=== PATIENT | male | born 1955 | race African-American/Black ===

== ENCOUNTER 2022-04-13 08:37 | Inpatient (IN) | payer MEDICARE, MEDICAID ==
[2022-04-13 10:07] LABS: ALT (SGPT) 22 U/L (8-55); AST (SGOT) 32 U/L (5-34); Albumin 1.9 g/dL (3.4-4.8); Alkaline Phosphatase 105 U/L (40-110); Anion Gap 11 mmol/L (10-20); BUN (Urea Nitrogen) 15 mg/dL (8.4-25.7); Bilirubin, Total 0.7 mg/dL (0.2-1.2); CK (CPK) 127 U/L (30-200); Calc. Creatinine Clearance 0 mL/min (70-130); Calcium 7.5 mg/dL (7.8-10.44); Carbon Dioxide 30 mmol/L (23-31); Chloride 100 mmol/L (98-107); Estimated GFR 72; Globulin 2.6 g/dL (2.4-3.5); Glucose 114 mg/dL (80-115); Potassium 3.2 mmol/L (3.5-5.1); Protein, Total 4.5 g/dL (5.8-8.1); Sodium 138 mmol/L (136-145)
[2022-04-13 10:10] LABS: #Lymphocytes 1.2 thou/uL (1.20-3.40); #Monocytes 0.7 thou/uL (0.11-0.59); #Neutrophils 9.8 thou/uL (1.40-6.50); %Eosinophils 0.3 % (0.0-10.0); %Lymphocytes 10.4 % (21.0-51.0); %Monocytes 6.1 % (0.0-10.0); %Neutrophils 83.2 % (42.0-75.0); Hemoglobin 10.7 g/dL (14.0-18.0); Mean Corpuscular HGB CONC 31.8 g/dL (32.0-36.0); Mean Corpuscular Hemoglobin 27.6 pg (27.0-31.0); Mean Corpuscular Volume 86.8 fL (78.0-98.0); Mean Platelet Volume 8.6 fL (7.4-10.4); Platelet Count 287 thou/uL (130-400); RBC Distribution Width 14.8 % (11.5-14.5); Red Blood Cell (RBC) Count 3.87 mill/uL (4.70-6.10); White Blood Cell (WBC) Count 11.7 thou/uL (4.8-10.8)
[2022-04-13] MEDS ORDERED: Fentanyl 100 MCG/2 ML VIAL ONE (10:15)
[2022-04-13 10:28] LABS: CKMB 2.3 ng/mL (0-6.6)
[2022-04-13] MEDS ORDERED: HYDROcodone/Acetaminophen 5/325 mg Tablet PO PRN ×2 (13:34)
[2022-04-13 13:43] LABS: CKMB 5.5 ng/mL (0-6.6)
[2022-04-13] MEDS ORDERED: Potassium Chloride 20 MEQ TAB PO SCH (15:00)
[2022-04-13 16:02] VITALS: BMI 34.1
[2022-04-13 16:46] LABS: CKMB 6.1 ng/mL (0-6.6)
[2022-04-13] MEDS: Benztropine 1 MG TAB PO SCH (20:28)
[2022-04-14 05:00] LABS: #Eosinphils 0.1 thou/uL (0.0-0.7); #Lymphocytes 1.5 thou/uL (1.20-3.40); #Monocytes 0.8 thou/uL (0.11-0.59); %Basophils 0.5 % (0.0-1.0); %Eosinophils 1.3 % (0.0-10.0); %Lymphocytes 20.3 % (21.0-51.0); %Monocytes 11.2 % (0.0-10.0); %Neutrophils 66.7 % (42.0-75.0); Hemoglobin 9.3 g/dL (14.0-18.0); Mean Corpuscular Hemoglobin 27.9 pg (27.0-31.0); Mean Corpuscular Volume 87.3 fL (78.0-98.0); Mean Platelet Volume 8.3 fL (7.4-10.4); Platelet Count 249 thou/uL (130-400); Red Blood Cell (RBC) Count 3.32 mill/uL (4.70-6.10); White Blood Cell (WBC) Count 7.5 thou/uL (4.8-10.8)
[2022-04-14 05:16] LABS: Anion Gap 10 mmol/L (10-20); BUN (Urea Nitrogen) 18 mg/dL (8.4-25.7); CK (CPK) 250 U/L (30-200); Calc. Creatinine Clearance 114 mL/min (70-130); Calcium 7.3 mg/dL (7.8-10.44); Carbon Dioxide 31 mmol/L (23-31); Chloride 100 mmol/L (98-107); Estimated GFR 69; Glucose 89 mg/dL (80-115); Potassium 3.2 mmol/L (3.5-5.1); Sodium 138 mmol/L (136-145)
[2022-04-14] MEDS: Furosemide 40 MG TAB PO SCH (08:00)
[2022-04-14] MEDS: Benztropine 1 MG TAB PO SCH ×2 (08:01→20:08)
[2022-04-14] MEDS: Spironolactone 25 MG TAB PO SCH (08:01)
[2022-04-14] MEDS: Potassium Chloride 20 MEQ TAB PO SCH (08:01)
[2022-04-14] MEDS ORDERED: Tamsulosin HCl 0.4 MG CAP PO SCH (12:00)
[2022-04-14 23:55] LABS: Bilirubin Negative (Negative); Blood, Urine 1+ (Negative); Clarity Turbid (Clear); Glucose, Urine (Dipstick) Normal (Negative); Ketone, Urine Negative (Negative); Leukocyte 25 Leu/uL (Negative); Nitrite Negative (Negative); Protein, Urine (Dipstick) 300 mg/dL (Neg-Trace); Specific Gravity, Urine 1.014 (1.002-1.036); Squamous Epithelial 0-3 HPF (0-3); Urobilinogen Normal mg/dL (Less than 2)
[2022-04-14 23:56] LABS: Bacteria/HPF 1+ HPF (None Seen)
[2022-04-15 05:04] LABS: Anion Gap 9 mmol/L (10-20); BUN (Urea Nitrogen) 17 mg/dL (8.4-25.7); Calc. Creatinine Clearance 115 mL/min (70-130); Calcium 7.1 mg/dL (7.8-10.44); Carbon Dioxide 30 mmol/L (23-31); Chloride 99 mmol/L (98-107); Estimated GFR 70; Glucose 88 mg/dL (80-115); Potassium 3.2 mmol/L (3.5-5.1); Sodium 135 mmol/L (136-145)
[2022-04-15] MEDS: Furosemide 40 MG TAB PO SCH (08:01)
[2022-04-15] MEDS: Potassium Chloride 20 MEQ TAB PO SCH (08:01)
[2022-04-15] MEDS: Spironolactone 25 MG TAB PO SCH (08:01)
[2022-04-15] MEDS: Tamsulosin HCl 0.4 MG CAP PO SCH (08:01)
[2022-04-15] MEDS: Benztropine 1 MG TAB PO SCH ×2 (08:01→20:22)
[2022-04-15] MEDS ORDERED: Furosemide 40 MG/4 ML VIAL SLOW IVP SCH (15:15)
[2022-04-15] MEDS ORDERED: Potassium Chloride 20 MEQ TAB PO SCH (15:15)
[2022-04-15] MEDS ORDERED: Lisinopril 10 MG TAB PO SCH (15:30)
[2022-04-15] MEDS: Albumin 25% 25 GM/100 ML BOT IVPB SCH ×2 (15:41→20:22)
[2022-04-15] MEDS: Acetaminophen 325 MG TAB PO PRN (18:33)
[2022-04-15] MEDS: Heparin 5,000 UNITS/ML VIAL SC SCH (20:22)
[2022-04-16] MEDS: Albumin 25% 25 GM/100 ML BOT IVPB SCH ×2 (03:10→08:45)
[2022-04-16] MEDS: Furosemide 40 MG/4 ML VIAL SLOW IVP SCH ×2 (05:56→13:30)
[2022-04-16] MEDS: Spironolactone 25 MG TAB PO SCH (08:45)
[2022-04-16] MEDS: Benztropine 1 MG TAB PO SCH ×2 (08:45→21:26)
[2022-04-16] MEDS: Potassium Chloride 20 MEQ TAB PO SCH (08:45)
[2022-04-16] MEDS: Heparin 5,000 UNITS/ML VIAL SC SCH ×3 (08:46→21:25)
[2022-04-16] MEDS: Lisinopril 10 MG TAB PO SCH (08:46)
[2022-04-16] MEDS: Tamsulosin HCl 0.4 MG CAP PO SCH (08:47)
[2022-04-16] MEDS: Acetaminophen 325 MG TAB PO PRN (10:36)
[2022-04-16] MEDS ORDERED: Potassium Chloride 20 MEQ TAB PO SCH (13:00)
[2022-04-16] MEDS ORDERED: PROPOFOL 20 ML ONE (15:12)
[2022-04-16 16:38] LABS: Urine Total Volume 8800 mL (250-2400)
[2022-04-16 17:33] LABS: Protein - 24 Hr 26488 mg/24 hr (Less than 300); Protein, Urine 301 mg/dL (1-14)
[2022-04-16] MEDS ORDERED: Labetalol HCl 100 MG/20 ML VIAL SLOW IVP PRN (20:16)
[2022-04-16] MEDS ORDERED: Bisacodyl 5 MG TAB PO PRN (21:16)
[2022-04-17] MEDS: hydrALAZINE 20 MG/ML VIAL SLOW IVP PRN ×2 (03:36→16:05)
[2022-04-17 05:19] LABS: Anion Gap 12 mmol/L (10-20); BUN (Urea Nitrogen) 13 mg/dL (8.4-25.7); Calc. Creatinine Clearance 123 mL/min (70-130); Calcium 7.9 mg/dL (7.8-10.44); Carbon Dioxide 27 mmol/L (23-31); Chloride 102 mmol/L (98-107); Estimated GFR 76; Glucose 87 mg/dL (80-115); Potassium 3.6 mmol/L (3.5-5.1); Sodium 137 mmol/L (136-145)
[2022-04-17] MEDS: Furosemide 40 MG/4 ML VIAL SLOW IVP SCH ×2 (05:35→16:04)
[2022-04-17] MEDS: Lisinopril 10 MG TAB PO SCH ×2 (08:16→21:05)
[2022-04-17] MEDS: Potassium Chloride 20 MEQ TAB PO SCH (08:16)
[2022-04-17] MEDS: Benztropine 1 MG TAB PO SCH ×2 (08:16→21:05)
[2022-04-17] MEDS: Spironolactone 25 MG TAB PO SCH (08:16)
[2022-04-17] MEDS: Heparin 5,000 UNITS/ML VIAL SC SCH ×3 (08:16→21:04)
[2022-04-17] MEDS: Tamsulosin HCl 0.4 MG CAP PO SCH (08:17)
[2022-04-18 04:15] LABS: Anion Gap 9 mmol/L (10-20); BUN (Urea Nitrogen) 14 mg/dL (8.4-25.7); Calc. Creatinine Clearance 101 mL/min (70-130); Calcium 7.7 mg/dL (7.8-10.44); Carbon Dioxide 31 mmol/L (23-31); Chloride 99 mmol/L (98-107); Estimated GFR 61; Glucose 93 mg/dL (80-115); Potassium 3.7 mmol/L (3.5-5.1); Sodium 135 mmol/L (136-145)
[2022-04-18] MEDS: Furosemide 40 MG/4 ML VIAL SLOW IVP SCH ×2 (05:44→15:42)
[2022-04-18] MEDS: hydrALAZINE 20 MG/ML VIAL SLOW IVP PRN (07:08)
[2022-04-18 08:21] LABS: Magnesium 1.8 mg/dL (1.6-2.6)
[2022-04-18] MEDS: Potassium Chloride 20 MEQ TAB PO SCH (08:51)
[2022-04-18] MEDS: Benztropine 1 MG TAB PO SCH ×2 (08:51→19:51)
[2022-04-18] MEDS: Spironolactone 25 MG TAB PO SCH (08:51)
[2022-04-18] MEDS: Tamsulosin HCl 0.4 MG CAP PO SCH (08:52)
[2022-04-18] MEDS: Lisinopril 10 MG TAB PO SCH ×2 (08:52→19:51)
[2022-04-18] MEDS: Heparin 5,000 UNITS/ML VIAL SC SCH ×3 (08:52→19:52)
[2022-04-18 16:12] LABS: #Basophils 0.1 thou/uL (0.0-0.2); #Lymphocytes 1.6 thou/uL (1.20-3.40); #Monocytes 0.6 thou/uL (0.11-0.59); #Neutrophils 4.3 thou/uL (1.40-6.50); %Basophils 1.3 % (0.0-1.0); %Eosinophils 0.7 % (0.0-10.0); %Lymphocytes 23.5 % (21.0-51.0); %Monocytes 9.2 % (0.0-10.0); %Neutrophils 65.4 % (42.0-75.0); Hemoglobin 10.5 g/dL (14.0-18.0); Mean Corpuscular HGB CONC 32.2 g/dL (32.0-36.0); Mean Corpuscular Hemoglobin 28.2 pg (27.0-31.0); Mean Corpuscular Volume 87.4 fL (78.0-98.0); Mean Platelet Volume 8.2 fL (7.4-10.4); Platelet Count 303 thou/uL (130-400); RBC Distribution Width 14.9 % (11.5-14.5); Red Blood Cell (RBC) Count 3.72 mill/uL (4.70-6.10); White Blood Cell (WBC) Count 6.6 thou/uL (4.8-10.8)
[2022-04-18 17:45] LABS: HIV (1/2) Antibody/Antigen Non-Reactive (NonReactive); HIV 1/2 INDEX 0.17 S/CO (<1.00)
[2022-04-19 05:15] LABS: Anion Gap 10 mmol/L (10-20); BUN (Urea Nitrogen) 16 mg/dL (8.4-25.7); Calc. Creatinine Clearance 99 mL/min (70-130); Calcium 7.5 mg/dL (7.8-10.44); Carbon Dioxide 29 mmol/L (23-31); Chloride 99 mmol/L (98-107); Estimated GFR 60; Glucose 95 mg/dL (80-115); Potassium 3.7 mmol/L (3.5-5.1); Sodium 134 mmol/L (136-145)
[2022-04-19] MEDS: Furosemide 40 MG/4 ML VIAL SLOW IVP SCH ×2 (06:17→14:01)
[2022-04-19] MEDS: Benztropine 1 MG TAB PO SCH ×2 (10:12→21:49)
[2022-04-19] MEDS: Tamsulosin HCl 0.4 MG CAP PO SCH (10:12)
[2022-04-19] MEDS: Potassium Chloride 20 MEQ TAB PO SCH (10:12)
[2022-04-19] MEDS: Lisinopril 10 MG TAB PO SCH ×2 (10:12→21:49)
[2022-04-19] MEDS: Spironolactone 25 MG TAB PO SCH (10:12)
[2022-04-19] MEDS: Heparin 5,000 UNITS/ML VIAL SC SCH ×3 (10:13→21:50)
[2022-04-19] MEDS ORDERED: Lisinopril 10 MG TAB PO SCH (14:45)
[2022-04-19 17:12] LABS: Bacteria/HPF None Seen HPF (None Seen); Bilirubin Negative (Negative); Blood, Urine Trace (Negative); Clarity Clear (Clear); Glucose, Urine (Dipstick) Normal (Negative); Ketone, Urine Negative (Negative); Leukocyte Negative Leu/uL (Negative); Nitrite Negative (Negative); Protein, Urine (Dipstick) 200 mg/dL (Neg-Trace); RBC/HPF 0-3 HPF (0-3); Specific Gravity, Urine 1.008 (1.002-1.036); Squamous Epithelial 0-3 HPF (0-3); Urobilinogen Normal mg/dL (Less than 2); WBC/HPF 0-3 HPF (0-3); pH, Urine 6.5 (5.0-9.0)
[2022-04-19] MEDS: Albuterol Sulfate 2.5 mg/3 ml Neb NEB PRN ×2 (17:56→18:07)
[2022-04-19] MEDS: hydrALAZINE 20 MG/ML VIAL SLOW IVP PRN (18:02)
[2022-04-19] MEDS: Lisinopril 20 MG TAB PO SCH (21:49)
[2022-04-19] MEDS: Ciprofloxacin 500 MG TAB PO SCH (21:50)
[2022-04-20] MEDS: Ciprofloxacin 500 MG TAB PO SCH (06:21)
[2022-04-20] MEDS: Furosemide 40 MG/4 ML VIAL SLOW IVP SCH ×2 (06:21→14:35)
[2022-04-20] MEDS: Potassium Chloride 20 MEQ TAB PO SCH (08:47)
[2022-04-20] MEDS: Lisinopril 20 MG TAB PO SCH (08:47)
[2022-04-20] MEDS: Spironolactone 25 MG TAB PO SCH (08:47)
[2022-04-20] MEDS: Heparin 5,000 UNITS/ML VIAL SC SCH ×2 (08:47→14:33)
[2022-04-20] MEDS: Benztropine 1 MG TAB PO SCH (08:47)
[2022-04-20] MEDS: Tamsulosin HCl 0.4 MG CAP PO SCH (08:47)
[2022-04-20] MEDS: Carvedilol 6.25 MG TAB PO SCH ×2 (08:47→18:06)
[2022-04-20] MEDS ORDERED: Lisinopril 20 MG TAB PO SCH ×2 (10:00→21:00)
[2022-04-20] MEDS: Lisinopril 10 MG TAB PO SCH (10:34)
[2022-04-20 11:16] LABS: Anion Gap 10 mmol/L (10-20); BUN (Urea Nitrogen) 15 mg/dL (8.4-25.7); Calc. Creatinine Clearance 101 mL/min (70-130); Calcium 7.5 mg/dL (7.8-10.44); Carbon Dioxide 31 mmol/L (23-31); Chloride 98 mmol/L (98-107); Estimated GFR 61; Glucose 99 mg/dL (80-115); Potassium 3.6 mmol/L (3.5-5.1); Sodium 135 mmol/L (136-145)
[2022-04-20 15:45] VITALS: BP 156/100; TEMP 97.9
[2022-04-21 15:13] LABS: Albumin-Ur 54.8 % (.); Alpha 1 - Ur 6.7 % (.); Alpha 2 - Ur 11.4 % (.); Beta-Ur 12.2 % (.); Gamma-Ur 14.9 % (.); M-Spike,% Not Observed % (Not Observed); Protein, Urine 489.3 mg/dL (Not Estab.)
[2022-04-21 15:13] LABS: A/G Ratio 0.7 (0.7-1.7); Albumin 1.9 g/dL (2.9-4.4); Alpha 1 0.2 g/dL (0.0-0.4); Alpha 2 0.7 g/dL (0.4-1.0); Beta 0.9 g/dL (0.7-1.3); Gamma 0.8 g/dL (0.4-1.8); Globulin, Total 2.6 g/dL (2.2-3.9); M-Spike Not Observed g/dL (Not Observed); Protein Electrophoresis Intrp Note: (.)
[2022-04-21 17:38] LABS: Glomerular Basmt Membrane ABS Less than 0.2 units (0.0-0.9)
== END 2022-04-20 19:00 | disposition home health service (06) | DRG 563 ==
LOC: ERS 08:37 → 2SW 14:24 → OBSVTOIN 04-14 21:48
PROVIDERS: ADMIT Hospitalist; ATTEND Hospitalist
PROC: 0RSJXZZ Reposition Right Shoulder Joint, External Approach (ICD-10-PCS; principal; 2022-04-16)
DX: S43.014A Anterior dislocation of right humerus, initial encounter (principal); I42.8 Other cardiomyopathies; I31.3 Pericardial effusion (noninflammatory); L97.929 Non-pressure chronic ulcer of unspecified part of left lower leg with unspecified severity; I13.0 Hypertensive heart and chronic kidney disease with heart failure and stage 1 through stage 4 chronic kidney disease, or unspecified chronic kidney disease; E87.1 Hypo-osmolality and hyponatremia; N17.9 Acute kidney failure, unspecified; Z20.822 Contact with and (suspected) exposure to COVID-19; Z53.29 Procedure and treatment not carried out because of patient's decision for other reasons; N05.9 Unspecified nephritic syndrome with unspecified morphologic changes; E88.09 Other disorders of plasma-protein metabolism, not elsewhere classified; E87.6 Hypokalemia; R77.8 Other specified abnormalities of plasma proteins; S00.83XA Contusion of other part of head, initial encounter; R29.6 Repeated falls; W18.30XA Fall on same level, unspecified, initial encounter; F79 Unspecified intellectual disabilities; I50.9 Heart failure, unspecified; N18.30 Chronic kidney disease, stage 3 unspecified; D63.1 Anemia in chronic kidney disease; E66.01 Morbid (severe) obesity due to excess calories; Z68.33 Body mass index [BMI] 33.0-33.9, adult; Z91.81 History of falling; Z79.899 Other long term (current) drug therapy
CPT/HCPCS: 36415; 70450; 70486; 71045; 72125; 76770; 80048; 80053; 81001; 82550; 82553; 83516; 83605; 83735; 83880; 84155; 84156; 84165; 84166; 84443; 84484; 85025; 86037; 86038; 86225; 87040; 87389; 93005; 93306; 93880; 94640; 96374; 97139; G0378; J0360; J1644; J1940; J2704; J3010; J7611; P9047; U0003; U0005

== ENCOUNTER 2022-06-01 13:02 | Inpatient (IN) | payer MEDICARE, MEDICAID ==
[2022-06-01 13:34] LABS: #Eosinphils 0.2 thou/uL (0.0-0.7); #Lymphocytes 1.8 thou/uL (1.20-3.40); #Monocytes 0.6 thou/uL (0.11-0.59); #Neutrophils 5.4 thou/uL (1.40-6.50); %Eosinophils 2.3 % (0.0-10.0); %Lymphocytes 22.3 % (21.0-51.0); %Monocytes 7.1 % (0.0-10.0); %Neutrophils 68.2 % (42.0-75.0); Hemoglobin 10.3 g/dL (14.0-18.0); Mean Corpuscular HGB CONC 32.6 g/dL (32.0-36.0); Mean Corpuscular Hemoglobin 28.3 pg (27.0-31.0); Mean Corpuscular Volume 86.7 fL (78.0-98.0); Mean Platelet Volume 7.1 fL (7.4-10.4); Platelet Count 404 thou/uL (130-400); RBC Distribution Width 14.3 % (11.5-14.5); Red Blood Cell (RBC) Count 3.64 mill/uL (4.70-6.10)
[2022-06-01 13:54] LABS: ALT (SGPT) 20 U/L (8-55); AST (SGOT) 24 U/L (5-34); Albumin 1.8 g/dL (3.4-4.8); Alkaline Phosphatase 107 U/L (40-110); Anion Gap 12 mmol/L (10-20); BUN (Urea Nitrogen) 26 mg/dL (8.4-25.7); Bilirubin, Total 0.3 mg/dL (0.2-1.2); Calc. Creatinine Clearance 0 mL/min (70-130); Calcium 7.7 mg/dL (7.8-10.44); Carbon Dioxide 23 mmol/L (23-31); Chloride 104 mmol/L (98-107); Estimated GFR 45; Globulin 2.6 g/dL (2.4-3.5); Glucose 90 mg/dL (80-115); Potassium 3.3 mmol/L (3.5-5.1); Protein, Total 4.4 g/dL (5.8-8.1); Sodium 136 mmol/L (136-145)
[2022-06-01] MEDS ORDERED: Furosemide 40 MG/4 ML VIAL ONE (16:36)
[2022-06-01 18:21] LABS: CKMB 1.1 ng/mL (0-6.6)
[2022-06-01] MEDS ORDERED: Potassium Chloride 20 MEQ TAB ONE (19:27)
[2022-06-01] MEDS ORDERED: Potassium Bicarbonate/Cit Ac 25 MEQ TAB ONE (20:24)
[2022-06-01 20:25] LABS: Magnesium 1.9 mg/dL (1.6-2.6)
[2022-06-01 21:43] LABS: Troponin I 0.035 ng/mL (< 0.028)
[2022-06-01] MEDS ORDERED: Ondansetron PF 4 MG/2 ML Vial IVP PRN (21:45)
[2022-06-01] MEDS ORDERED: Acetaminophen 325 MG TAB PO PRN (21:45)
[2022-06-01] MEDS ORDERED: Ondansetron ODT 4 MG TAB SL PRN (21:45)
[2022-06-01] MEDS ORDERED: hydrALAZINE 20 MG/ML VIAL SLOW IVP SCH (23:59)
[2022-06-02] MEDS ORDERED: Potassium Chloride 20 MEQ TAB PO SCH (00:15)
[2022-06-02 00:53] VITALS: BMI 35.3
[2022-06-02 01:04] LABS: Troponin I 0.052 ng/mL (< 0.028)
[2022-06-02 04:12] LABS: Anion Gap 13 mmol/L (10-20); BUN (Urea Nitrogen) 28 mg/dL (8.4-25.7); Calc. Creatinine Clearance 81 mL/min (70-130); Calcium 7.6 mg/dL (7.8-10.44); Carbon Dioxide 21 mmol/L (23-31); Chloride 105 mmol/L (98-107); Estimated GFR 48; Glucose 88 mg/dL (80-115); Potassium 3.5 mmol/L (3.5-5.1); Sodium 135 mmol/L (136-145)
[2022-06-02] MEDS: Furosemide 40 MG/4 ML VIAL SLOW IVP SCH ×2 (05:39→13:35)
[2022-06-02 06:26] LABS: #Eosinphils 0.1 thou/uL (0.0-0.7); #Lymphocytes 1.7 thou/uL (1.20-3.40); #Monocytes 0.8 thou/uL (0.11-0.59); #Neutrophils 6.1 thou/uL (1.40-6.50); %Basophils 0.3 % (0.0-1.0); %Lymphocytes 19.5 % (21.0-51.0); %Neutrophils 70.2 % (42.0-75.0); Hemoglobin 9.7 g/dL (14.0-18.0); Mean Corpuscular HGB CONC 32.9 g/dL (32.0-36.0); Mean Corpuscular Hemoglobin 28.8 pg (27.0-31.0); Mean Corpuscular Volume 87.6 fL (78.0-98.0); Platelet Count 407 thou/uL (130-400); RBC Distribution Width 14.3 % (11.5-14.5); Red Blood Cell (RBC) Count 3.38 mill/uL (4.70-6.10); White Blood Cell (WBC) Count 8.6 thou/uL (4.8-10.8)
[2022-06-02] MEDS ORDERED: Albuterol Sulfate 1.25 MG/3 ML NEB EZPAP PRN (08:41)
[2022-06-02] MEDS: Benztropine 1 MG TAB PO SCH ×2 (08:52→20:43)
[2022-06-02] MEDS: Metoprolol Tartrate 50 MG TAB PO SCH ×2 (08:52→20:43)
[2022-06-02] MEDS: Aspirin 81 mg Enteric Coated Tablet PO SCH (08:52)
[2022-06-02] MEDS: Amlodipine 5 MG TAB PO SCH (08:52)
[2022-06-02] MEDS: Heparin 5,000 UNITS/ML VIAL SC SCH ×2 (08:53→20:43)
[2022-06-02] MEDS: Simvastatin 10 MG TAB PO SCH (16:44)
[2022-06-03 05:00] LABS: Anion Gap 10 mmol/L (10-20); BUN (Urea Nitrogen) 31 mg/dL (8.4-25.7); Calc. Creatinine Clearance 80 mL/min (70-130); Calcium 7.8 mg/dL (7.8-10.44); Carbon Dioxide 24 mmol/L (23-31); Chloride 104 mmol/L (98-107); Estimated GFR 47; Glucose 81 mg/dL (80-115); Potassium 3.4 mmol/L (3.5-5.1); Sodium 135 mmol/L (136-145)
[2022-06-03] MEDS: Furosemide 40 MG/4 ML VIAL SLOW IVP SCH ×2 (05:45→16:04)
[2022-06-03] MEDS ORDERED: Potassium Chloride 20 MEQ TAB PO SCH (08:15)
[2022-06-03] MEDS ORDERED: Potassium Chloride 20 MEQ in Premix Bag 1 BAG IVPB SCH (08:30)
[2022-06-03] MEDS: Benztropine 1 MG TAB PO SCH ×2 (08:56→20:27)
[2022-06-03] MEDS: Aspirin 81 mg Enteric Coated Tablet PO SCH (08:57)
[2022-06-03] MEDS: Metoprolol Tartrate 50 MG TAB PO SCH ×2 (08:57→20:27)
[2022-06-03] MEDS: Amlodipine 5 MG TAB PO SCH (08:57)
[2022-06-03] MEDS: Diazepam 5 MG TAB PO SCH (08:57)
[2022-06-03] MEDS: Heparin 5,000 UNITS/ML VIAL SC SCH ×2 (09:05→20:28)
[2022-06-03] MEDS: Simvastatin 10 MG TAB PO SCH (18:42)
[2022-06-04 04:53] LABS: Anion Gap 9 mmol/L (10-20); BUN (Urea Nitrogen) 32 mg/dL (8.4-25.7); Calc. Creatinine Clearance 81 mL/min (70-130); Calcium 7.5 mg/dL (7.8-10.44); Carbon Dioxide 24 mmol/L (23-31); Chloride 107 mmol/L (98-107); Estimated GFR 49; Glucose 84 mg/dL (80-115); Potassium 3.4 mmol/L (3.5-5.1); Sodium 137 mmol/L (136-145)
[2022-06-04] MEDS: Furosemide 40 MG/4 ML VIAL SLOW IVP SCH ×2 (05:57→14:44)
[2022-06-04] MEDS ORDERED: Potassium Chloride 20 MEQ in Premix Bag 1 BAG IVPB SCH (07:45)
[2022-06-04] MEDS ORDERED: Magnesium Oxide 400 MG TAB PO SCH (07:45)
[2022-06-04] MEDS: Benztropine 1 MG TAB PO SCH ×2 (08:44→21:25)
[2022-06-04] MEDS: Aspirin 81 mg Enteric Coated Tablet PO SCH (08:44)
[2022-06-04] MEDS: Diazepam 5 MG TAB PO SCH (08:44)
[2022-06-04] MEDS: Amlodipine 10 MG TAB PO SCH (08:44)
[2022-06-04] MEDS: Metoprolol Tartrate 50 MG TAB PO SCH ×2 (08:44→21:25)
[2022-06-04] MEDS: Lisinopril 10 MG TAB PO SCH ×2 (08:45→21:25)
[2022-06-04] MEDS: Heparin 5,000 UNITS/ML VIAL SC SCH ×2 (08:45→21:28)
[2022-06-04] MEDS: Simvastatin 10 MG TAB PO SCH (16:48)
[2022-06-04 18:32] LABS: Creatinine, Urine 56.93 mg/dL (63-166)
[2022-06-05 05:07] LABS: Hemoglobin 9.9 g/dL (14.0-18.0); Mean Corpuscular HGB CONC 32.4 g/dL (32.0-36.0); Mean Corpuscular Hemoglobin 29.1 pg (27.0-31.0); Mean Corpuscular Volume 89.7 fL (78.0-98.0); Mean Platelet Volume 7.3 fL (7.4-10.4); Platelet Count 422 thou/uL (130-400); RBC Distribution Width 14.2 % (11.5-14.5); White Blood Cell (WBC) Count 6.7 thou/uL (4.8-10.8)
[2022-06-05 05:30] LABS: Anion Gap 10 mmol/L (10-20); BUN (Urea Nitrogen) 37 mg/dL (8.4-25.7); Calc. Creatinine Clearance 83 mL/min (70-130); Calcium 7.7 mg/dL (7.8-10.44); Carbon Dioxide 25 mmol/L (23-31); Chloride 106 mmol/L (98-107); Estimated GFR 50; Glucose 85 mg/dL (80-115); Magnesium 2.1 mg/dL (1.6-2.6); Potassium 3.3 mmol/L (3.5-5.1); Sodium 138 mmol/L (136-145)
[2022-06-05] MEDS: Furosemide 40 MG/4 ML VIAL SLOW IVP SCH ×2 (06:26→13:38)
[2022-06-05] MEDS: Benztropine 1 MG TAB PO SCH ×2 (08:00→20:48)
[2022-06-05] MEDS: Aspirin 81 mg Enteric Coated Tablet PO SCH (08:01)
[2022-06-05] MEDS: Diazepam 5 MG TAB PO SCH (08:01)
[2022-06-05] MEDS: Heparin 5,000 UNITS/ML VIAL SC SCH ×2 (08:01→20:48)
[2022-06-05] MEDS: Lisinopril 10 MG TAB PO SCH ×2 (08:01→20:48)
[2022-06-05] MEDS: Metoprolol Tartrate 50 MG TAB PO SCH ×2 (08:01→20:48)
[2022-06-05] MEDS: Amlodipine 10 MG TAB PO SCH (08:01)
[2022-06-05] MEDS: Potassium Chloride 20 MEQ in Premix Bag 1 BAG IVPB SCH ×2 (08:47→11:40)
[2022-06-05] MEDS: Simvastatin 10 MG TAB PO SCH (17:42)
[2022-06-06 05:03] LABS: Anion Gap 10 mmol/L (10-20); BUN (Urea Nitrogen) 37 mg/dL (8.4-25.7); Calc. Creatinine Clearance 84 mL/min (70-130); Calcium 7.7 mg/dL (7.8-10.44); Carbon Dioxide 23 mmol/L (23-31); Chloride 108 mmol/L (98-107); Estimated GFR 53; Glucose 97 mg/dL (80-115); Potassium 3.8 mmol/L (3.5-5.1); Sodium 137 mmol/L (136-145)
[2022-06-06] MEDS: Furosemide 40 MG/4 ML VIAL SLOW IVP SCH ×2 (05:54→14:48)
[2022-06-06] MEDS: Diazepam 5 MG TAB PO SCH (09:12)
[2022-06-06] MEDS: Amlodipine 10 MG TAB PO SCH (10:22)
[2022-06-06] MEDS: Heparin 5,000 UNITS/ML VIAL SC SCH ×2 (10:23→20:01)
[2022-06-06] MEDS: Aspirin 81 mg Enteric Coated Tablet PO SCH (10:23)
[2022-06-06] MEDS: Benztropine 1 MG TAB PO SCH ×2 (10:23→20:01)
[2022-06-06] MEDS: Lisinopril 10 MG TAB PO SCH ×2 (10:23→20:01)
[2022-06-06] MEDS: Metoprolol Tartrate 50 MG TAB PO SCH ×2 (10:24→20:02)
[2022-06-06] MEDS: Simvastatin 10 MG TAB PO SCH (17:11)
[2022-06-07 04:56] LABS: Anion Gap 9 mmol/L (10-20); BUN (Urea Nitrogen) 36 mg/dL (8.4-25.7); Calc. Creatinine Clearance 82 mL/min (70-130); Calcium 7.7 mg/dL (7.8-10.44); Carbon Dioxide 27 mmol/L (23-31); Chloride 108 mmol/L (98-107); Estimated GFR 52; Glucose 97 mg/dL (80-115); Potassium 3.5 mmol/L (3.5-5.1); Sodium 140 mmol/L (136-145)
[2022-06-07] MEDS: Lisinopril 10 MG TAB PO SCH ×2 (09:37→20:20)
[2022-06-07] MEDS: Furosemide 20 MG TAB PO SCH ×2 (09:37→16:22)
[2022-06-07] MEDS: Amlodipine 10 MG TAB PO SCH (09:37)
[2022-06-07] MEDS: Benztropine 1 MG TAB PO SCH ×2 (09:37→20:21)
[2022-06-07] MEDS: Aspirin 81 mg Enteric Coated Tablet PO SCH (09:37)
[2022-06-07] MEDS: Diazepam 5 MG TAB PO SCH (09:37)
[2022-06-07] MEDS: Heparin 5,000 UNITS/ML VIAL SC SCH ×2 (09:38→20:21)
[2022-06-07] MEDS: Metoprolol Tartrate 50 MG TAB PO SCH ×2 (09:38→20:21)
[2022-06-07] MEDS: Simvastatin 10 MG TAB PO SCH (16:22)
[2022-06-08 05:12] LABS: Anion Gap 9 mmol/L (10-20); BUN (Urea Nitrogen) 35 mg/dL (8.4-25.7); Calc. Creatinine Clearance 85 mL/min (70-130); Calcium 7.7 mg/dL (7.8-10.44); Carbon Dioxide 27 mmol/L (23-31); Chloride 107 mmol/L (98-107); Estimated GFR 54; Glucose 89 mg/dL (80-115); Potassium 3.5 mmol/L (3.5-5.1); Sodium 139 mmol/L (136-145)
[2022-06-08] MEDS: Lisinopril 10 MG TAB PO SCH (09:27)
[2022-06-08] MEDS: Heparin 5,000 UNITS/ML VIAL SC SCH (09:27)
[2022-06-08] MEDS: Furosemide 20 MG TAB PO SCH ×2 (09:27→13:17)
[2022-06-08] MEDS: Benztropine 1 MG TAB PO SCH (09:27)
[2022-06-08] MEDS: Diazepam 5 MG TAB PO SCH (09:27)
[2022-06-08] MEDS: Aspirin 81 mg Enteric Coated Tablet PO SCH (09:27)
[2022-06-08] MEDS: Metoprolol Tartrate 50 MG TAB PO SCH (09:27)
[2022-06-08] MEDS: Amlodipine 10 MG TAB PO SCH (09:27)
[2022-06-08] MEDS: Simvastatin 10 MG TAB PO SCH (16:41)
[2022-06-08 16:44] VITALS: BP 140/93; TEMP 98.4
== END 2022-06-08 18:50 | disposition home health service (06) | DRG 698 ==
LOC: ERS 13:02 → 2NO 19:48
PROVIDERS: ADMIT Internal Medicine; ATTEND Family Medicine
DX: N04.9 Nephrotic syndrome with unspecified morphologic changes (principal); I21.A1 Myocardial infarction type 2; I13.0 Hypertensive heart and chronic kidney disease with heart failure and stage 1 through stage 4 chronic kidney disease, or unspecified chronic kidney disease; I50.42 Chronic combined systolic (congestive) and diastolic (congestive) heart failure; Z20.822 Contact with and (suspected) exposure to COVID-19; N17.9 Acute kidney failure, unspecified; E87.6 Hypokalemia; N18.30 Chronic kidney disease, stage 3 unspecified; D63.1 Anemia in chronic kidney disease; R80.9 Proteinuria, unspecified; Z98.890 Other specified postprocedural states; Z79.899 Other long term (current) drug therapy; Z79.82 Long term (current) use of aspirin
CPT/HCPCS: 36415; 71045; 80048; 80053; 82553; 82570; 83735; 83880; 84156; 84484; 85025; 85027; 93005; 96374; J0360; J1644; J1940; J3480; U0003; U0005